=== PATIENT | female | born 1990 | race Caucasian/White ===

== ENCOUNTER 2016-09-10 22:23 | Emergency (ER) | payer SELFPAY ==
[~2016-09-10] VITALS: Ht 160 cm; Wt 95.5 kg
[2016-09-10 22:28] VITALS: TEMP 99.8
[2016-09-10] MEDS ORDERED: ZOFRAN8 MG PO (22:49)
[2016-09-10] MEDS ORDERED: ZITHROMAX 250M250 MG PO (23:25)
[2016-09-10 23:36] VITALS: BP 112/86; PULSE 102
== END 2016-09-10 23:43 | disposition home or self-care (01) ==
LOC: COL.ER 22:23
DX: J02.0 Streptococcal pharyngitis (principal); F17.210 Nicotine dependence, cigarettes, uncomplicated; R59.0 Localized enlarged lymph nodes

== ENCOUNTER → 2017-10-07 | Outpatient (CLI) | payer MEDICAID ==
[~2017-10-07] MED LIST: PREDNISONE20 MG PO; ZITHROMAX 250M250 MG PO; ZOFRAN8 MG PO
[2017-10-07 11:42] LABS: BASO # 0.1 (0.0-0.2); BASO % 0.3 % (0.0-2.0); EOS # 0.4 (0.0-0.7); GRAN # 12.2 (1.4-6.5); GRAN % 82.2 % (42.2-75.2); HEMATOCRIT 39.7 % (37.0-47.0); HEMOGLOBIN 13.2 g/dl (12.5-16.0); LYMPH # 1.6 (1.2-3.4); LYMPH % 10.8 % (20.0-51.0); MEAN CELL VOLUME 90 fl (80.0-100.0); MEAN CORPUSCULAR HEMOGLOBIN 30 pg (27.0-31.0); MEAN CORPUSCULAR HGB CONC 33 g/dl (33.0-37.0); MEAN PLATELET VOLUME 9.9 fl (7.4-10.4); MONO # 0.5 (0.1-0.6); MONO % 3.2 % (1.7-9.3); PLATELET COUNT 379 K/mm3 (130-400); RED BLOOD COUNT 4.42 M/mm3 (4.10-5.30); REDCELL DISTRIBUTION WIDTH-CV 13.8 % (11.5-14.5)
[2017-10-07 12:02] LABS: ALBUMIN 4.5 gm/dL (3.5-5.0); BILIRUBIN,TOTAL 0.4 mg/dL (0.0-1.0); CALCIUM 9.8 mg/dL (8.4-10.2); CREATININE, serum 0.57 mg/dL (0.52-1.25); POTASSIUM 3.7 mmol/L (3.4-5.0); TOTAL PROTEIN 8.2 gm/dL (6.4-8.2)
== END ==
LOC: COL.LAB 10:51
PROVIDERS: Family Medicine
DX: Z34.90 Encounter for supervision of normal pregnancy, unspecified, unspecified trimester (principal); R06.2 Wheezing; Z88.0 Allergy status to penicillin; Z88.2 Allergy status to sulfonamides

== ENCOUNTER 2018-03-13 06:15 | Inpatient (IN) | payer MEDICAID ==
[2018-03-13] VITALS (33 sets, daily range): BP systolic 110–137; BP diastolic 58–91; PULSE 76–112; TEMP 97.2–98.3
[~2018-03-13] VITALS: Ht 162.6 cm; Wt 109.1 kg
[2018-03-13 08:00] LABS: BASO % 0.4 % (0.0-2.0); EOS # 0.3 (0.0-0.7); EOS % 2.6 % (0-4.0); GRAN # 5.6 (1.4-6.5); GRAN % 54.1 % (42.2-75.2); HEMOGLOBIN 11.4 g/dl (12.5-16.0); LYMPH # 3.9 (1.2-3.4); LYMPH % 37.5 % (20.0-51.0); MEAN CELL VOLUME 88 fl (80.0-100.0); MEAN CORPUSCULAR HEMOGLOBIN 29 pg (27.0-31.0); MEAN CORPUSCULAR HGB CONC 32 g/dl (33.0-37.0); MEAN PLATELET VOLUME 9.8 fl (7.4-10.4); MONO # 0.5 (0.1-0.6); MONO % 4.9 % (1.7-9.3); PLATELET COUNT 333 K/mm3 (130-400); RED BLOOD COUNT 3.99 M/mm3 (4.10-5.30); REDCELL DISTRIBUTION WIDTH-CV 15.7 % (11.5-14.5)
[2018-03-13 08:02] LABS: HEMATOCRIT 35.2 % (37.0-47.0)
[2018-03-13] MEDS ORDERED: PERCOCET 325 MG1 TA2 PO (08:35)
[2018-03-13] MEDS ORDERED: MOTRIN 800800 MG/TAB PO (08:35)
[2018-03-14 03:00] VITALS: BP 124/60; PULSE 70; TEMP 98.1
[2018-03-14 10:00] VITALS: BP 129/75; PULSE 90; TEMP 98.1
== END 2018-03-14 16:30 | disposition home or self-care (01) | DRG 775 ==
LOC: LDR 06:15 → OB 06:56 → LDR 15:50 → OB 16:32
PROVIDERS: Obstetrics & Gynecology
PROC: 10E0XZZ Delivery of Products of Conception, External Approach (ICD-10-PCS; principal; 2018-03-13)
PROC: 0UQJXZZ Repair Clitoris, External Approach (ICD-10-PCS; 2018-03-13)
PROC: 10907ZC Drainage of Amniotic Fluid, Therapeutic from Products of Conception, Via Natural or Artificial Opening (ICD-10-PCS; 2018-03-13)
PROC: 3E033VJ Introduction of Other Hormone into Peripheral Vein, Percutaneous Approach (ICD-10-PCS; 2018-03-13)
DX: O70.0 First degree perineal laceration during delivery (principal); Z37.0 Single live birth; O99.214 Obesity complicating childbirth; Z3A.39 39 weeks gestation of pregnancy; O99.02 Anemia complicating childbirth
CPT/HCPCS: J2590; J7120

== ENCOUNTER 2019-12-21 07:40 | Inpatient (IN) | payer MEDICAID ==
[~2019-12-21] VITALS: Ht 162.6 cm; Wt 106.4 kg
[~2019-12-21 07:40] MED LIST changes: +MOTRIN 800800 MG/TAB PO; +PERCOCET 325 MG1 TA2 PO
[2019-12-22] VITALS (23 sets, daily range): BP systolic 96–145; BP diastolic 53–770; PULSE 81–120; TEMP 98.2–98.8
[2019-12-22] MEDS ORDERED: LEVOXYL0.05 MG PO (06:37)
[2019-12-22] MEDS ORDERED: PRENATAL MVI (06:37)
--- NOTE | 2019-12-22 07:10 | NUR ---
Pt arrives on unit ambulatory with FOB for induction of labor. Requests to wear personal gown for delivery. Denies vaginal bleeding, LOF, regular ctx and reports GFM. EFM and toco applied. VSS. IV started in LH. Labs drawn. LR infusing. Admission assessment completed. Consents signed. Pt updated on POC. Safety reviewed. Pt requests cervical check before starting pitocin. Fetus ballotable upon external palpation of abdomen. SVE per this RN /-2. Difficulty reaching sutures. 0740-Pitocin started per policy at 2mU. 0756-Pitocin increased to 4mU. 0803-Difficulty tracing FHR. This RN at bedside adjusting monitors. FHR noted in the 50s. Pitocin shut off. Pt repositioned LL. SVE per this RN unchanged with sutures palpable. 0805-Dr. Arias notified. Requested to unit. VORB for terbutaline 0.25mg SQ. See EMAR. FHR noted in the 50s from [id number]. During this time pt felt a "large movement" FHR recovers around 0808 to the 150s. 0810 FHR deceleration noted in 50s. FHR recovered at 0812 but remains tachycardic around the 200s. 0808-O2 applied at 10L via simple mask. 0810-Dr. Arias at bedside. 0815-AROM of clear fluid performed by provider. FSE placed at this time. FHR noted in the 200-210s. Pt skin prepped for delivery. 0829-Difficulty decerning FHR with FSE. External monitors placed. Discrepency of physical HR vs audible. 0830-Dr. Arias discusses recommendation for emergent section. Pt agrees to POC. 0833-Pt taken off monitors and to OR via bed.
[2019-12-22 08:36] LABS: BASO % 0.3 % (0.0-2.0); EOS # 0.3 (0.0-0.7); EOS % 2.8 % (0-4.0); GRAN # 4.4 (1.4-6.5); GRAN % 49.1 % (42.2-75.2); HEMATOCRIT 37.6 % (37.0-47.0); HEMOGLOBIN 12.3 g/dl (12.5-16.0); LYMPH # 3.8 (1.2-3.4); LYMPH % 42.1 % (20.0-51.0); MEAN CELL VOLUME 88 fl (80.0-100.0); MEAN CORPUSCULAR HEMOGLOBIN 29 pg (27.0-31.0); MEAN CORPUSCULAR HGB CONC 33 g/dl (33.0-37.0); MEAN PLATELET VOLUME 10.1 fl (7.4-10.4); MONO # 0.5 (0.1-0.6); MONO % 5.5 % (1.7-9.3); PLATELET COUNT 347 K/mm3 (130-400); RED BLOOD COUNT 4.29 M/mm3 (4.10-5.30); REDCELL DISTRIBUTION WIDTH-CV 14.6 % (11.5-14.5)
--- NOTE | 2019-12-22 17:35 | NUR ---
Pt called RN for clot in toilet. Clot noted the size of fist. VSS. Fundus firm. Pt denies s/s.
[2019-12-23 01:45] VITALS: BP 96/55; PULSE 92; TEMP 98.1
[2019-12-23 04:40] VITALS: BP 114/64; PULSE 88
[2019-12-23 07:30] VITALS: BP 126/76; PULSE 82; TEMP 97.6
--- NOTE | 2019-12-23 07:30 | NUR ---
Sits up in chair, alert. States had some sleep last night. 0740 Percocet 5/325 mg, ibuprofen 800 mg given per request and as ordered.
[2019-12-23 16:00] VITALS: BP 117/69; PULSE 85; TEMP 97.7
--- NOTE | 2019-12-23 16:00 | NUR ---
Rests in bed, alert. 1605 Ibuprofen 800 mg given as ordered.
[2019-12-23 21:30] VITALS: BP 91/54; PULSE 100; TEMP 98
[2019-12-24] MEDS ORDERED: PERCOCET 325 MG1 TA2 PO (06:56)
[2019-12-24] MEDS ORDERED: MOTRIN 800800 MG/TAB PO (06:56)
[2019-12-24 08:00] VITALS: BP 114/60; PULSE 92; TEMP 97.5
== END 2019-12-24 14:30 | disposition home or self-care (01) | DRG 788 ==
LOC: OB 12-22 07:01 → LDR 12-22 07:01 → OB 12-22 10:15 → LDR 12-22 16:09 → OB 12-24 14:30
PROVIDERS: ADMIT Obstetrics & Gynecology
PROC: 10D00Z1 Extraction of Products of Conception, Low, Open Approach (ICD-10-PCS; principal; 2019-12-22)
DX: O99.02 Anemia complicating childbirth (principal); O99.214 Obesity complicating childbirth; O99.62 Diseases of the digestive system complicating childbirth; O99.284 Endocrine, nutritional and metabolic diseases complicating childbirth; D64.9 Anemia, unspecified; E66.9 Obesity, unspecified; K21.9 Gastro-esophageal reflux disease without esophagitis; E03.9 Hypothyroidism, unspecified; Z3A.39 39 weeks gestation of pregnancy; Z37.0 Single live birth
CPT/HCPCS: J0330; J1885; J2210; J2590; J2704; J2710; J3010; J3105; J7120

== ENCOUNTER 2022-11-07 11:12 | Emergency (ER) | payer MEDICAID ==
[~2022-11-07] VITALS: Ht 160 cm; Wt 100.0 kg
[~2022-11-07 11:12] MED LIST changes: +LEVOXYL0.05 MG PO; +PRENATAL MVI
[2022-11-07 11:26] VITALS: TEMP 98.1
[2022-11-07] MEDS ORDERED: CLEOCIN HCL300 MG PO (12:02)
[2022-11-07 12:15] VITALS: BP 124/88; PULSE 80
== END 2022-11-07 12:17 | disposition home or self-care (01) ==
LOC: COL.ER 11:12
DX: K04.7 Periapical abscess without sinus (principal); K03.81 Cracked tooth; Z88.0 Allergy status to penicillin; Z88.2 Allergy status to sulfonamides